=== PATIENT | female | born 1980 | race Caucasian/White ===

== ENCOUNTER 2020-08-13 09:53 | Emergency (ER) | payer OTHER, MEDICARE ==
[~2020-08-13 09:53] MED LIST: ATIVAN0.5 MG PO; BENTYL10 MG PO; CLONAZEPAM 1MG T1 MG PO; CLONAZEPAM1 MG PO; FOSAMAX70 MG PO; GABAPENTIN600 MG PO; HYDROCODONE-APA1 TAB PO; LANTUS **100 UNITS/ SC; LEVAQUIN750 MG PO; MARINOL5 MG PO; NEURONTIN800 MG PO; NORCO 5-325 TA1 EACH PO; NOVOLOG VI100 UNIT/1 SC; ONDANSETRON ODT4 MG PO; PAXIL30 MG PO; PHENERGAN25 M1 PO; ROBAXIN750 MG PO; SENNA S TABLET1 EACH PO; SMZ TMP DS PO; SYNTHROID25 MCG PO; TRAZODONE HCL150 MG PO; VICODIN 10/3251 EACH PO; VITAMIN D32000 UNI2 PO; ZOCOR10 MG PO; ZOFRAN8 MG PO
[2020-08-13 10:58] LABS: BASOPHIL 0.5 % (0-2); EOSINOPHIL 0.2 % (0-5); HCT 30.5 % (37.0-47.0); HGB 9.9 g/dl (12.5-16.0); LYMPHOCYTE 4.5 % (15-48); MCH 31.2 pg (25.0-31.0); MCHC 32.5 g/dL (32.0-36.0); MCV 96.2 fL (78.0-100.0); MONOCYTE 4.5 % (0-12); MPV 9.8 fL (6.0-9.5); NEUTROPHIL 86.9 % (41-80); NRBC 0; PLT 438 K/uL (150-400); RBC 3.17 M/uL (4.20-5.40); RDW 13.2 % (11.5-14.0); WBC 13.2 K/uL (4.0-10.5)
[2020-08-13 11:13] LABS: ALBUMIN 2.5 g/dL (3.4-5.0); BILIRUBIN - TOTAL 0.7 mg/dL (0.2-1.0); BUN/CREAT RATIO (CALC) 15.6 RATIO; CREATININE 0.45 mg/dL (0.51-0.95); GLOBULIN (CALCULATION) 4.1 g/dL; POTASSIUM 4.9 mmol/L (3.5-5.1); TOTAL PROTEIN 6.6 g/dL (6.4-8.2)
[2020-08-13 11:21] LABS: LACTIC ACID 1.5 mmol/L (0.4-1.9)
== END 2020-08-13 15:43 | disposition other institution (70) ==
LOC: FER 09:53
PROVIDERS: Emergency Medicine
DX: L02.211 Cutaneous abscess of abdominal wall (principal); K56.609 Unspecified intestinal obstruction, unspecified as to partial versus complete obstruction; E10.9 Type 1 diabetes mellitus without complications; F17.210 Nicotine dependence, cigarettes, uncomplicated; Z85.038 Personal history of other malignant neoplasm of large intestine; Z88.5 Allergy status to narcotic agent; Z88.8 Allergy status to other drugs, medicaments and biological substances; Z20.822 Contact with and (suspected) exposure to COVID-19
CPT/HCPCS: 36415; 80053; 83605; 85025; 87040; 93005; J2270; J2405; J2543; J7030; Q9967; U0002